=== PATIENT | female | born 2000 | race Two or more races ===

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

== ENCOUNTER → 2019-02-16 | Outpatient (CLI) | payer OTHER ==
[~2019-02-16] MED LIST changes: +FERROUS SULFAT325 M1 PO
== END | disposition home or self-care (01) ==
LOC: PRENATAL 10:58
DX: O26.873 Cervical shortening, third trimester (principal)

== ENCOUNTER 2021-07-16 13:26 | Emergency (ER) | payer OTHER ==
[~2021-07-16] VITALS: Ht 152.4 cm; Wt 52.2 kg
== END 2021-07-16 16:12 | disposition home or self-care (01) ==
LOC: ER 13:26
DX: K29.60 Other gastritis without bleeding (principal)

== ENCOUNTER 2022-12-24 20:46 | Emergency (ER) | payer OTHER ==
[~2022-12-24] VITALS: Ht 152.4 cm; Wt 59.0 kg
[2022-12-25] MEDS ORDERED: PEPCID AC20 MG PO (02:21)
== END 2022-12-25 02:32 | disposition home or self-care (01) ==
LOC: ER 20:46
DX: K52.9 Noninfective gastroenteritis and colitis, unspecified (principal)

== ENCOUNTER 2024-05-20 19:56 | Emergency (ER) | payer OTHER ==
[~2024-05-20] VITALS: Ht 152.4 cm; Wt 63.5 kg
[~2024-05-20 19:56] MED LIST changes: +PEPCID AC20 MG PO
[2024-05-20 21:16] LABS: HEMATOCRIT 36.2 % (36.0-45.00); MEAN CELL VOLUME 78.8 fL (80.00-100.00); MEAN CORPUSCULAR HEMOGLOBIN 26.1 pg (27.00-32.0); MEAN CORPUSCULAR HGB CONC 33.1 g/dl (32.0-36.0); PLATELET COUNT 181 K/uL (150-450); RED CELL DISTRIBUTION WIDTH 13.7 % (11.5-14.5)
[2024-05-20 21:30] LABS: PH,URINE 6.5 (5.0-8.0); URINE APPEARANCE Clear; URINE BILIRRUBIN Negative (NEGATIVE); URINE BLOOD Negative; URINE COLOR Yellow; URINE GLUCOSE Negative (NEGATIVE); URINE KETONE Negative (NEGATIVE); URINE LEUKOCYTE Small; URINE NITRATE Negative; URINE PROTEIN Negative (NEGATIVE)
[2024-05-20 21:34] LABS: URINE BACTERIA 609.8 uL (0.0-1933); URINE EPITHELIAL CELLS 64.1 uL (0.0-38.8); URINE RBC 11.1 uL (0.0-20.8); URINE WBC 66.4 uL (0.0-23.2)
[2024-05-20] MEDS ORDERED: PRENA1 TRUE CO1 EACH PO (22:19)
[2024-05-20] MEDS ORDERED: ONDANSETRON ODT8 MG PO (22:19)
[2024-05-20] MEDS ORDERED: NITROFURANTOIN100 MG PO (22:19)
== END 2024-05-20 22:29 | disposition home or self-care (01) ==
LOC: ER 19:58
PROVIDERS: General Practice
DX: O20.8 Other hemorrhage in early pregnancy (principal); Z3A.01 Less than 8 weeks gestation of pregnancy; R10.2 Pelvic and perineal pain

== ENCOUNTER 2024-06-28 11:53 | Emergency (ER) | payer OTHER ==
[~2024-06-28] VITALS: Ht 152.4 cm; Wt 63.5 kg
[~2024-06-28 11:53] MED LIST changes: +NITROFURANTOIN100 MG PO; +ONDANSETRON ODT8 MG PO; +PRENA1 TRUE CO1 EACH PO
[2024-06-28 14:26] LABS: HEMATOCRIT 37.2 % (36.0-45.00); HEMOGLOBIN 12.8 g/dL (12.0-15.00); MEAN CELL VOLUME 76.4 fL (80.00-100.00); MEAN CORPUSCULAR HEMOGLOBIN 26.4 pg (27.00-32.0); MEAN CORPUSCULAR HGB CONC 34.5 g/dl (32.0-36.0); PLATELET COUNT 145 K/uL (150-450); RED BLOOD COUNT 4.87 M/uL (4.00-6.00); RED CELL DISTRIBUTION WIDTH 13.4 % (11.5-14.5)
[2024-06-28 14:28] LABS: PH,URINE 7.5 (5.0-8.0); URINE APPEARANCE Cloudy; URINE BILIRRUBIN Negative (NEGATIVE); URINE BLOOD Negative; URINE COLOR Yellow; URINE GLUCOSE Negative (NEGATIVE); URINE LEUKOCYTE Moderate; URINE NITRATE Negative; URINE PROTEIN Negative (NEGATIVE)
[2024-06-28 14:32] LABS: URINE BACTERIA 3142.3 uL (0.0-1933); URINE EPITHELIAL CELLS 72.1 uL (0.0-38.8); URINE RBC 2.4 uL (0.0-20.8); URINE WBC 103.8 uL (0.0-23.2)
[2024-06-28 15:24] LABS: URINE KETONE 40 (NEGATIVE)
[2024-06-28 15:25] LABS: URINE MUCUS MODERATE
[2024-06-28] MEDS ORDERED: MACROBID 100 M100 MG PO (16:38)
[2024-06-28] MEDS ORDERED: CEFTRIAXONE SODIUM 1,000 MG VIAL IM ONE (16:45)
== END 2024-06-28 16:52 | disposition home or self-care (01) ==
LOC: ER 11:55
PROVIDERS: Emergency Medicine
DX: O23.41 Unspecified infection of urinary tract in pregnancy, first trimester (principal); N39.0 Urinary tract infection, site not specified; Z3A.08 8 weeks gestation of pregnancy